=== PATIENT | male | born 1980 | race Caucasian/White ===

== ENCOUNTER 2016-08-28 17:34 | Emergency (ER) | payer OTHER | END 2016-08-28 19:00 | disposition home or self-care (01) | LOC: ER1 17:34 | DX: J06.9 Acute upper respiratory infection, unspecified (principal); S76.912A Strain of unspecified muscles, fascia and tendons at thigh level, left thigh, initial encounter; X58.XXXA Exposure to other specified factors, initial encounter | CPT/HCPCS: 87081; 87880; 99283 ==

== ENCOUNTER 2016-09-03 14:14 | Emergency (ER) | payer OTHER ==
[2016-09-03 15:24] LABS: HEMOGLOBIN 16.2 gm/dl (14.0-17.5); RED BLOOD COUNT 5.2 M/UL (4.20-5.50); WHITE BLOOD COUNT 11.6 K/UL (4.5-11.0)
[2016-09-03 16:04] LABS: BUN/CREATININE RATIO 9 (0-10)
== END 2016-09-03 19:33 | disposition home or self-care (01) ==
LOC: ER1 14:14
PROVIDERS: Nurse Practitioner Family
DX: K52.9 Noninfective gastroenteritis and colitis, unspecified (principal); R74.8 Abnormal levels of other serum enzymes
CPT/HCPCS: 36415; 80053; 81001; 82150; 83690; 85025; 96361; 96374; 99284; J2405; J7050; Q9962